=== PATIENT | female | born 1960 | race Caucasian/White ===

== ENCOUNTER 2021-06-16 13:37 | Outpatient (CLI) | payer OTHER ==
--- NOTE | 2021-06-17 11:47 | Mammography Report ---
BILATERAL DIGITAL SCREENING MAMMOGRAM 3D/2D: 06/16/2021 CLINICAL: Routine screening. Comparison is made to exams dated: 07/07/2015 mammogram - [facility], 12/14/2011 [facility] mogram, 12/31/2007 mammogram, and 04/12/2007 mammogram - [facility]. There are scattered fibro glandular elements in both breasts. No significant masses, calcifications, or other findings are seen in either breast. There has been no significant interval change. IMPRESSION: NEGATIVE There is no mammographic evidence of malignancy. A 1 year screening mammogram is recommended. This exam was interpreted at Station ID: [id number]. NOTE: For mammograms, a report in lay terms will be sent to the patient. Approximately 15% of breast malignancies will not be visualized mammographically. In the management of a palpable breast mass, a negative mammogram must not discourage biopsy of a clinically suspicious lesion. Electronically Signed By: Wyatt Grant M.D. aty/penrad:06/16/2021 16:28:10 ACR BI-RADS Category 1: Negative 3341F PARENCHYMAL PATTERN: (A) - The breast(s) demonstrate(s) scattered fibroglandular densities. BI-RADS CATEGORY: (1) - 1 RECOMMENDATION: (ANNUAL) - Recommend routine annual screening mammography. [id number] 1 year screening LATERALITY: (B)
== END 2021-06-16 13:38 | disposition home or self-care (01) ==
LOC: DI 13:37
DX: Z12.31 Encounter for screening mammogram for malignant neoplasm of breast (principal)

== ENCOUNTER 2021-06-16 13:43 | Outpatient (CLI) | payer OTHER ==
--- NOTE | 2021-06-16 16:53 | MRI Report ---
PROCEDURE: Cervical Spine W/O INDICATIONS: CERVICALGIA, SCOLIOSIS TECHNIQUE: Noncontrast sagittal T1 spin echo and T2 fast spin echo, sagittal STIR, foraminal oblique sagittal T2 fast spin echo, and axial gradient echo or T2 fast spin echo through the cervical spine. COMPARISON: None. FINDINGS: Image quality: Excellent. Alignment and Curvature: There is mild, grade 1 anterolisthesis of C3 on C4. Mild grade 1 retrolisth esis of C4 on C5 and C6 on C7. Bone Marrow: Marrow demonstrates normal overall signal. Atypical hemangiomata at T1 and T2. Mild re active signal within the end plates adjacent to the C3-C4, C4-C5, C5-C6, C6-C7, and C7-T1 interverteb ral discs. Spinal Cord: Visualized spinal cord has normal size and signal. No cerebellar tonsillar herniation. Paraspinous Soft Tissues: No paravertebral masses. Prevertebral soft tissues are normal in thicknes s. C2-C3: Mild disc height loss. No significant canal, nor foraminal stenosis. C3-C4: Mild disc height loss and desiccation. Mild diffuse disc bulge. Mild facet and uncovertebral hypertrophy bilaterally. No significant canal stenosis. Mild right foraminal stenosis. No left serafin inal stenosis C4-C5: Moderate disc height loss and desiccation. Mild diffuse disc bulge with superimposed left far lateral broad-based protrusion. Mild facet and uncovertebral hypertrophy. Moderate canal stenosis. S evere left and moderate right foraminal stenosis. Left C5 nerve root compression. C5-C6: Moderate disc height loss and desiccation. Mild diffuse disc bulge. Mild facet and uncoverteb ral hypertrophy bilaterally. Mild canal stenosis. Mild bilateral foraminal stenosis C6-C7: Mild disc height loss. Moderate disc desiccation. Moderate diffuse disc bulge. Mild facet and uncovertebral hypertrophy. Moderate canal stenosis. Mild bilateral foraminal stenosis. C7-T1: Mild disc height loss and desiccation. Mild diffuse disc bulge. Mild canal stenosis. No serafin inal stenosis. IMPRESSION: 1. Multilevel degenerative disc and facet disease, as well as uncovertebral hypertrophy. 2. Multilevel canal stenoses, worst at C4-C5 and C6-C7, where there are moderate canal stenoses. 3. Multilevel foraminal stenoses, worst at C4-C5 where there is associated intraforaminal nerve root compression. Recommend correlation with clinical symptoms to ascertain relevance of this finding. Reviewed by: Wilfrido Colindres MD on 06/16/2021 4:52 PM PDT Approved by: Wilfrido Colindres MD on 06/16/2021 4:52 PM PDT Station ID: [id number]
== END 2021-06-16 13:44 | disposition home or self-care (01) ==
LOC: DI 13:43
PROVIDERS: ATTEND Student in an Organized Health Care Education/Training Program
DX: M50.321 Other cervical disc degeneration at C4-C5 level (principal); M48.02 Spinal stenosis, cervical region; M41.9 Scoliosis, unspecified

== ENCOUNTER 2022-01-05 13:31 | Outpatient (CLI) | payer OTHER ==
--- NOTE | 2022-01-05 16:14 | CT Report ---
PROCEDURE: CT cervical spine without contrast INDICATIONS: NECK PAIN TECHNIQUE: Noncontrast 3 mm thick sections acquired from the skull base to the T4 level. Sagittal and coronal r eformats were then constructed. For radiation dose reduction, the following was used: automated exp osure control, adjustment of mA and/or kV according to patient size. COMPARISON: None. FINDINGS: Image quality: Excellent. Bones: No fractures or dislocations. Visualized superior ribs are intact. At C3-4, disc height is preserved. Hypertrophic facet joint results in moderate right foraminal steno sis. No central or left foraminal stenosis At C4-5, there is disc space narrowing, hypertrophic uncovertebral joints and posterior disc osteophy te complex resulting in mild central stenosis. Moderate left foraminal stenosis. At C5-C6, disc space narrowing and posterior osteophyte results in mild central stenosis. Mild bilate ral foraminal stenosis. At C6-C7, disc space narrowing and posterior disc osteophyte results in mild central stenosis without foraminal stenosis. The remaining levels, no central or foraminal stenosis Soft tissues: Prevertebral soft tissues are normal in thickness. No paravertebral hematomas. No ap ical pneumothoraces. IMPRESSION: Multilevel degenerative disc disease and arthropathy particularly at C4-5, C5-6 and C6-7 without sign ificant osseous central canal stenosis Reviewed by: Sajnu Gruber MD on 01/05/2022 3:13 PM CATHY Approved by: Sanju Gruber MD on 01/05/2022 3:13 PM AKCIRILO Station ID: [id number]
== END 2022-01-05 13:32 | disposition home or self-care (01) ==
LOC: DI 13:31
PROVIDERS: ATTEND Physician Assistant Medical
DX: M47.812 Spondylosis without myelopathy or radiculopathy, cervical region (principal); M48.02 Spinal stenosis, cervical region